=== PATIENT | female | born 1975 ===

== ENCOUNTER 2021-05-12 10:30 | Inpatient (IN) | payer OTHER ==
[~2021-05-12] VITALS: Ht 157.5 cm; Wt 63.0 kg
[2021-05-12] MEDS ORDERED: ZYRTEC10 M3 PO (12:48)
[2021-05-12] MEDS ORDERED: MAGNE PO (12:48)
[2021-05-15] MEDS ORDERED: MAGNESIUM200 MG (16:51)
[2021-05-16] MEDS ORDERED: Tylenol #3 PO (09:01)
== END 2021-05-16 10:09 | disposition home or self-care (01) | DRG 743 ==
LOC: O/R 05-15 08:51 → OB/GYN 05-15 10:30 → SURG-SUITE 05-15 18:18
PROVIDERS: ADMIT Obstetrics & Gynecology; ATTEND Obstetrics & Gynecology
PROC: 0UT2FZZ Resection of Bilateral Ovaries, Via Natural or Artificial Opening With Percutaneous Endoscopic Assistance (ICD-10-PCS; 2021-05-15)
PROC: 0UT7FZZ Resection of Bilateral Fallopian Tubes, Via Natural or Artificial Opening With Percutaneous Endoscopic Assistance (ICD-10-PCS; 2021-05-15)
PROC: 0UQF8ZZ Repair Cul-de-sac, Via Natural or Artificial Opening Endoscopic (ICD-10-PCS; 2021-05-15)
PROC: 0USG8ZZ Reposition Vagina, Via Natural or Artificial Opening Endoscopic (ICD-10-PCS; 2021-05-15)
PROC: 0TJB8ZZ Inspection of Bladder, Via Natural or Artificial Opening Endoscopic (ICD-10-PCS; 2021-05-15)
PROC: 0UT9FZZ Resection of Uterus, Via Natural or Artificial Opening With Percutaneous Endoscopic Assistance (ICD-10-PCS; principal; 2021-05-15 10:45)
DX: D25.2 Subserosal leiomyoma of uterus (principal); N81.11 Cystocele, midline; N72 Inflammatory disease of cervix uteri; N83.11 Corpus luteum cyst of right ovary; N83.02 Follicular cyst of left ovary; N80.3 Endometriosis of pelvic peritoneum; N94.5 Secondary dysmenorrhea; N92.0 Excessive and frequent menstruation with regular cycle